=== PATIENT | male | born 1985 ===

== ENCOUNTER 2020-12-01 22:02 | Emergency (ER) | payer SELFPAY ==
[~2020-12-01] VITALS: Ht 185.4 cm; Wt 89.1 kg
[2020-12-01 22:37] VITALS: BP 117/78
== END 2020-12-02 00:19 | disposition left against medical advice (07) ==
LOC: EMS 22:05
DX: R44.0 Auditory hallucinations (principal); Z53.21 Procedure and treatment not carried out due to patient leaving prior to being seen by health care provider